=== PATIENT | male | born 2000 | race Caucasian/White ===

== ENCOUNTER 2021-03-08 22:14 | Emergency (ER) | payer BC ==
[2021-03-08] MEDS ORDERED: Sodium Chloride 0.9% 10 ML Syringe FLUSH PRN (22:32)
[2021-03-08] MEDS ORDERED: Ondansetron 4 MG/2 ML SDV IVPUSH ONE (22:33)
[2021-03-08] MEDS ORDERED: Sodium Chloride 0.9% 1,000 ML IV ONE (22:33)
[2021-03-08] MEDS ORDERED: diphenhydrAMINE 50 MG/ML SDV IVPUSH ONE ×2 (22:58→23:02)
[2021-03-08 23:03] LABS: ANION GAP 15.2 mmol/L (5-15); CHLORIDE,CL 106 mmol/L (98-107); SODIUM,NA 142 mmol/L (136-145)
[2021-03-08] MEDS ORDERED: methylPREDNISolone Sodium Succinate 125 MG/2 ML SDV IVPUSH ONE (23:03)
--- NOTE | 2021-03-08 23:53 | EDM.PDOC ---
ED HPI GENERAL MEDICAL PROBLEM - General Chief Complaint: General Stated Complaint: N/V Time Seen by Provider: 03/08/21 22:35 Source of Information: Reports: Patient, Family (father) History Limitations: Reports: No Limitations - History of Present Illness INITIAL COMMENTS - FREE TEXT/NARRATIVE: Scott is a very pleasant 20-year-old male presents to the emergency room with abrupt onset of nausea and vomiting, sweats, tingling in his arm, complaints of scratchy feeling in his throat. He is visiting the [facility] with his dad and brother hunting ducks. They are from [facility]. He has significant anaphylactic allergy history which includes bananas, fish-containing products, peas, peanuts. He is not aware becoming in contact with any of this this evening. They are staying at a [place] in [place]. He did have a [place] pizza that they used an oven to bake and he has had this many times before without any problems. He reports he was planned basketball exercising vigorously afterwards and became suddenly ill and sick. He now presents to the emergency room accompanied with his dad. On appearance he is in no distress. Mildly pale. He is nontoxic-appearing although he appears to be sweaty. He had an IV placed in his left antecubital. An 1 L of normal saline was started. Vital signs were stable O2 saturation was in the 95th percent on room air. Onset: Today, Sudden Onset Date: 03/08/21 Onset Time: 21:45 Duration: Minutes:, Constant Location: Reports: Neck, Chest, Generalized Quality: Reports: Burning Severity: Moderate Improves with: Reports: None Worsens with: Reports: None Associated Symptoms: Reports: Fever/Chills, Nausea/Vomiting. 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: Reports: Other Medication(s) - Related Data Allergies Allergy/AdvReac Type Severity Reaction Status Date / Time banana Allergy Anaphylactic Verified 03/08/21 22:58 Shock Fish Containing Products Allergy Anaphylactic Verified 03/08/21 22:58 Shock peanut Allergy Anaphylactic Verified 03/08/21 22:58 Shock peas Allergy Anaphylactic Verified 03/08/21 22:58 Shock fresh fruit/vegetables Allergy Other Uncoded 03/08/21 22:58 ED ROS GENERAL - Review of Systems Review Of Systems: See Below Constitutional: Reports: Chills HEENT: Reports: Throat Pain, Other (No edema around the right lips or tongue) Respiratory: Denies: Shortness of Breath, Wheezing, Cough Cardiovascular: Denies: Chest Pain, Edema Endocrine: Reports: No Symptoms GI/Abdominal: Reports: Nausea, Vomiting. Denies: Abdominal Pain, Diarrhea : Reports: No Symptoms Musculoskeletal: Reports: No Symptoms Skin: Denies: Cyanosis, Pruritis, Rash, Erythema, Change in Hair/Nails, Lumps, Urticaria Neurological: Reports: No Symptoms Psychiatric: Reports: No Symptoms Hematologic/Lymphatic: Reports: No Symptoms Immunologic: Reports: Anaphylaxis, Food Allergy ED EXAM, GENERAL - Physical Exam Exam: See Below Exam Limited By: No Limitations General Appearance: Alert, WD/WN, Mild Distress Eye Exam: Bilateral Eye: EOMI Ears: Hearing Grossly Normal Nose: Normal Inspection, Normal Mucosa, No Blood Throat/Mouth: Normal Inspection, Normal Lips, Normal Teeth, Normal Oropharynx, Normal Voice, No Airway Compromise, Other (No signs of angioedema). No: Dysphagia, Inflammation, Perioral Cyanosis Head: Atraumatic, Normocephalic Neck: Normal Inspection, Supple, Non-Tender, Full Range of Motion Respiratory/Chest: No Respiratory Distress, Lungs Clear, Normal Breath Sounds, No Accessory Muscle Use, Chest Non-Tender Cardiovascular: Normal Peripheral Pulses, Regular Rate, Rhythm, No Murmur GI/Abdominal: Normal Bowel Sounds, Soft, Non-Tender, No Organomegaly, No Distention, No Abnormal Bruit, No Mass Back Exam: Normal Inspection, Full Range of Motion Extremities: Normal Inspection, Normal Range of Motion, Non-Tender, No Pedal Edema, Normal Capillary Refill Neurological: Alert, Oriented, No Motor/Sensory Deficits Psychiatric: Normal Affect, Normal Mood Skin Exam: Warm, Dry, Intact, Normal Color, No Rash Lymphatic: No Adenopathy Course - Vital Signs Last Recorded V/S: Last Vital Signs Temp 98.2 F 03/08/21 22:20 Pulse 70 03/08/21 23:45 Resp 20 03/08/21 22:20 BP 97/55 L 03/08/21 23:45 Pulse Ox 95 03/08/21 23:45 - Orders/Labs/Meds Orders: Active Orders 24 hr Category Date Time Status Peripheral IV Care [RC] . DIRECTED Care 03/08/21 22:32 Active Sodium Chloride 0.9% [Saline Flush] Med 03/08/21 22:32 Active 10 ml FLUSH Q8HR PRN Peripheral IV Insertion Adult [OM.PC] Routine Oth 03/08/21 22:32 Ordered Medication Orders Sodium Chloride (Sodium Chloride 0.9% 10 Ml Syringe) 10 ml FLUSH Q8HR PRN PRN Reason: keep vein open Last Admin: 03/08/21 22:38 Dose: 10 ml Documented by: ELLIS Labs: Laboratory Tests 03/08/21 03/08/21 03/08/21 Range/Units 22:40 22:40 22:45 WBC 9.08 (5.00-10.00) 10^3/uL RBC 5.05 (4.50-6.00) 10^6/uL Hgb 14.8 (13.0-17.0) g/dL Hct 42.1 (40.0-52.0) % MCV 83.4 (82.0-92.0) fL MCH 29.3 (27.0-31.0) pg MCHC 35.2 (32.0-36.0) g/dL RDW 12.0 (11.5-14.5) % Plt Count 252 (150-400) 10^3/uL MPV 8.8 (7.4-10.4) fL Immature Gran % (Auto) 0.1 (0.0-5.0) % Neut % (Auto) 51.6 (50.0-70.0) % Lymph % (Auto) 37.0 (20.0-40.0) % Davie % (Auto) 8.4 H (2.0-8.0) % Eos % (Auto) 2.8 (1.0-3.0) % Baso % (Auto) 0.1 (0.0-1.0) % Neut # (Auto) 4.69 (2.50-7.00) 10^3/uL Lymph # (Auto) 3.36 (1.00-4.00) 10^3/uL Davie # (Auto) 0.76 (0.10-0.80) 10^3/uL Eos # (Auto) 0.25 (0.10-0.30) 10^3/uL Baso # (Auto) 0.01 (0.00-0.10) 10^3/uL Immature Gran # (Auto) 0.01 (0.00-0.50) 10^3/uL Sodium 142 (136-145) mmol/L Potassium 3.4 L (3.5-5.1) mmol/L Chloride 106 (98-107) mmol/L Carbon Dioxide 24.2 (21.0-32.0) mmol/L Anion Gap 15.2 H (5-15) mmol/L BUN 16 (7-18) mg/dL Creatinine 0.94 (0.51-1.17) mg/dL Est Cr Clr Drug Dosing TNP Estimated GFR (MDRD) > 60 mL/min Glucose 148 H (70-140) mg/dL Calcium 9.1 (8.7-10.3) mg/dL SARS CoV-2 RNA Rapid ALEXANDRA Negative (NEGATIVE) Meds: Medications Generic Name Dose Route Start Last Admin Trade Name Freq PRN Reason Stop Dose Admin Sodium Chloride 10 ml 03/08/21 22:32 03/08/21 22:38 Sodium Chloride 0.9% 10 Ml Syringe FLUSH 10 ml Q8HR PRN Administration keep vein open Discontinued Medications Generic Name Dose Route Start Last Admin Trade Name Freq PRN Reason Stop Dose Admin Diphenhydramine HCl 50 mg 03/08/21 22:58 03/08/21 23:00 Diphenhydramine 50 Mg/Ml Sdv IVPUSH 03/08/21 22:59 50 mg ONETIME ONE Administration Diphenhydramine HCl 50 mg 03/08/21 23:02 03/08/21 23:07 Diphenhydramine 50 Mg/Ml Sdv IVPUSH 03/08/21 23:03 Not Given ONETIME ONE Sodium Chloride 1,000 mls @ 999 mls/hr 03/08/21 22:33 03/08/21 22:53 Normal Saline IV 03/08/21 23:33 999 mls/hr .BOLUS ONE Administration Methylprednisolone Sodium Succinate 125 mg 03/08/21 23:03 03/08/21 23:09 Methylprednisolone Sodium Succinate 125 Mg/2 Ml Sdv IVPUSH 03/08/21 23:04 125 mg ONETIME ONE Administration Ondansetron HCl 4 mg 03/08/21 22:33 03/08/21 22:46 Ondansetron 4 Mg/2 Ml Sdv IVPUSH 03/08/21 22:34 4 mg ONETIME ONE Administration - Re-Assessments/Exams Free Text/Narrative Re-Assessment/Exam: 03/09/21 00:00 Patient was given 1 L IV fluids. Zofran 4 mg was given IV, patient denies any recurrence of nausea and no further episodes of vomiting. He was given 50 mg IV Benadryl and 125 mg IV Solu-Medrol. He is resting comfortably. He reports less discomfort in his throat. No further tingling in his arm. 03/09/21 00:13 Patient states he feels significant better after IV fluids and medication. No longer experiencing episodes of a scratchy or sore throat. No breathing difficulties. Departure - Departure Time of Disposition: 00:20 Disposition: Home, Self-Care 01 Condition: Good Clinical Impression: Nausea & vomiting Qualifiers: Vomiting type: unspecified Vomiting Intractability: non-intractable Qualified Code(s): R11.2 - Nausea with vomiting, unspecified Allergic reaction to food Qualifiers: Encounter type: initial encounter Qualified Code(s): T78.1XXA - Other adverse food reactions, not elsewhere classified, initial encounter - Discharge Information Instructions: Anaphylactic Reaction, Adult, Food Allergy, [id number] Referrals: Ashley Alex MD [Primary Care Provider] - Forms: ED Department Discharge Care Plan Goals: 1. Rest 2. Continue with oral hydration 3. Avoidance of possible allergic products 4. Carry EpiPen with you when traveling 5. Follow-up with your primary care if your symptoms are persisting 6. Return to the emergency room if any signs symptoms of throat swelling, angioedema, airway restriction, hives, nausea vomiting returns. Sepsis Event Note (ED) - Evaluation Sepsis Screening Result: No Definite Risk - Focused Exam Vital Signs: Vital Signs Temp Pulse Resp BP Pulse Ox 03/08/21 23:45 70 97/55 L 95 03/08/21 23:30 73 102/55 L 94 L 03/08/21 23:15 73 107/66 100 03/08/21 23:00 92 107/65 100 03/08/21 22:58 95 113/63 100 03/08/21 22:20 98.2 F 95 20 122/78 99 - My Orders Last 24 Hours: My Active Orders 03/08/21 22:32 Peripheral IV Care [RC] . DIRECTED Sodium Chloride 0.9% [Saline Flush] 10 ml FLUSH Q8HR PRN Peripheral IV Insertion Adult [OM.PC] Routine - Assessment/Plan Last 24 Hours: My Active Orders 03/08/21 22:32 Peripheral IV Care [RC] . DIRECTED Sodium Chloride 0.9% [Saline Flush] 10 ml FLUSH Q8HR PRN Peripheral IV Insertion Adult [OM.PC] Routine Assessment:: 1. Nausea vomiting resolved 2. Probable allergic reaction patient now feeling better with IV Benadryl and Solu-Medrol, patient feels much better after fluid replacement 1 L normal saline. Plan: 1. Rest 2. Return to back to the emergency room if any further episodes such as nausea vomiting, shortness of breath, throat swelling or sensation of throat closing. 3. Carry your EpiPen with you when traveling.
== END 2021-03-09 00:19 | disposition home or self-care (01) ==
LOC: KA.ED 22:14
DX: T78.1XXA Other adverse food reactions, not elsewhere classified, initial encounter (principal); R11.2 Nausea with vomiting, unspecified; Z91.018 Allergy to other foods; Z91.013 Allergy to seafood; Z91.010 Allergy to peanuts; Z20.822 Contact with and (suspected) exposure to COVID-19
CPT/HCPCS: 36415; 80048; 85025; 96374; 96375; 99284; 99284-25; J1200; J2405; J2930; J7030; U0002